=== PATIENT | male | born 1985 | race African-American/Black ===

== ENCOUNTER 2022-05-03 09:44 | Inpatient (IN) | payer SELFPAY ==
[~2022-05-03] VITALS: Ht 170.2 cm; Wt 78.9 kg
[2022-05-03 13:22] LABS: CLARITY URINE CLEAR (CLEAR); COLOR URINE DARK YELLOW (YELLOW); KETONES URINE TRACE (NEGATIVE); LEUKOCYTE ESTERASE URINE TRACE (NEGATIVE); NITRITE URINE NEGATIVE (NEGATIVE); OCCULT BLOOD URINE NEGATIVE (NEGATIVE); PROTEIN URINE 1+ (NEGATIVE); SPECIFIC GRAVITY URINE 1.028 (1.005-1.030)
[2022-05-03 13:29] LABS: CHLORIDE 105 mEq/L (98-107)
[2022-05-03] MEDS ORDERED: KETOROLAC 15MG/ML VIAL IV NR (13:30)
[2022-05-03] MEDS ORDERED: SODIUM CHLORIDE 0.9% 1,000 ML IV ONE (13:30)
[2022-05-03 13:34] LABS: HEMATOCRIT 29.7 % (42.0-52.0); MEAN CORPUSCULAR HEMOGLOBIN 32.5 pg (28.0-32.0); MEAN CORPUSCULAR VOLUME 96.4 fL (80.0-94.0); PLATELET 341 x1000/uL (130-400); RED BLOOD CELL COUNT 3.08 mill/uL (4.7-6.1); RED CELL DISTRIBUTION WIDTH 14.3 % (11.6-14.6)
[2022-05-03 13:39] LABS: PROTHROMBIN TIME 11.1 sec (9.6-11.0)
[2022-05-03] MEDS ORDERED: CEFTRIAXONE SODIUM 500 MG/VIAL IM NR (16:45)
[2022-05-03] MEDS ORDERED: DOXYCYCLINE HYCLATE 100MG CAPSULE PO ONE (16:45)
[2022-05-03] MEDS ORDERED: AZITHROMYCIN 500 MG TABLET PO NR (16:45)
[2022-05-03] MEDS ORDERED: CEFTRIAXONE 2 G PREMIX 50 ML IV ONE (17:00)
[2022-05-03] MEDS ORDERED: CEFTRIAXONE 2 G in DEXTROSE 5% WATER 50 ML IV NR (17:00)
[2022-05-03 20:00] VITALS: BP 126/78
[2022-05-03] MEDS ORDERED: MAGNESIUM/ALUMINUM HYDROXIDE/SIMETHICONE 30ML UDC PO PRN (20:30)
[2022-05-03] MEDS ORDERED: CLONIDINE 0.1MG TABLET PO PRN (20:30)
[2022-05-03] MEDS ORDERED: IPRATROPIUM/ALBUTEROL 0.5-3(2.5)MG/3ML NEB NEB PRN (20:30)
[2022-05-03] MEDS ORDERED: DOCUSATE SODIUM 100MG CAPSULE PO PRN (20:30)
[2022-05-03] MEDS ORDERED: GUAIFENESIN 200MG/10ML SUGAR FREE UDC PO PRN (20:30)
[2022-05-03] MEDS ORDERED: NITROGLYCERIN 0.4MG TABLET SL SL PRN (20:30)
[2022-05-03] MEDS ORDERED: ACETAMINOPHEN 325MG TABLET PO PRN ×2 (20:30)
[2022-05-03] MEDS ORDERED: IOHEXOL-300 100 ML BOTTLE ONE (21:07)
[2022-05-03] MEDS: ONDANSETRON HCL 4MG/2ML INJ IV PRN (21:28)
[2022-05-03] MEDS: KETOROLAC 15MG/ML VIAL IV PRN (21:29)
[2022-05-03 21:31] LABS: T4 FREE 0.84 ng/dL (0.76-1.46)
[2022-05-03] MEDS: ZOLPIDEM TARTRATE 5MG TABLET PO PRN (21:39)
[2022-05-03 21:50] LABS: VITAMIN B12 SERUM 541 pg/mL (211-911)
[2022-05-03] MEDS: PIPERACILLIN/TAZ 3.375G PREMIX 50 ML IV SCH (22:32)
[2022-05-03 23:21] VITALS: BP 126/78
[2022-05-04] VITALS (7 sets, daily range): BP systolic 98–134; BP diastolic 54–87
[2022-05-04] MEDS: PIPERACILLIN/TAZ 3.375G PREMIX 50 ML IV SCH (05:39)
[2022-05-04 08:18] LABS: BASOPHILS % 0.5 % (0.0-2.0); EOSINOPHILS % 5.4 % (0.0-5.0); HEMATOCRIT. 26.5 % (42.0-52.0); HEMOGLOBIN. 8.6 g/dL (14.0-18.0); LYMPHOCYTES % 36.9 % (20.0-50.0); MEAN CORPUSCULAR HEMOGLOBIN 31.4 pg (28.0-32.0); MEAN CORPUSCULAR VOLUME 97.2 fL (80.0-94.0); MEAN PLATELET VOLUME 7.7 fl (7.4-10.4); MONOCYTES % 10.3 % (2.0-8.0); NEUTROPHILS % 46.9 % (40.0-76.0); PLATELET 289 x1000/uL (130-400); RED BLOOD CELL COUNT 2.72 mill/uL (4.7-6.1); RED CELL DISTRIBUTION WIDTH 14.4 % (11.6-14.6)
[2022-05-04] MEDS: KETOROLAC 15MG/ML VIAL IV PRN ×2 (09:14→22:27)
[2022-05-04] MEDS: PANTOPRAZOLE SODIUM 40 MG/VIAL IV SCH (09:14)
[2022-05-04 10:26] LABS: CHLORIDE 104 mEq/L (98-107)
[2022-05-04] MEDS ORDERED: LIDOCAINE HCL 2% JELLY 5ML TOP NR (14:00)
[2022-05-04] MEDS: PIPERACILLIN/TAZOBACTAM 3.375G in DEXT 5% WATER 50ML IV SCH ×2 (15:44→21:23)
[2022-05-04] MEDS: DOCUSATE SODIUM 100MG CAPSULE PO SCH (16:03)
[2022-05-04] MEDS: ONDANSETRON HCL 4MG/2ML INJ IV PRN (22:27)
[2022-05-04] MEDS: ZOLPIDEM TARTRATE 5MG TABLET PO PRN (22:27)
[2022-05-05 04:00] VITALS: BP 120/70
[2022-05-05] MEDS: PIPERACILLIN/TAZOBACTAM 3.375G in DEXT 5% WATER 50ML IV SCH ×2 (05:11→14:06)
[2022-05-05 06:35] LABS: HEMATOCRIT 29.2 % (42.0-52.0); HEMOGLOBIN 9.6 g/dL (14.0-18.0); MEAN CORPUSCULAR HEMOGLOBIN 31.5 pg (28.0-32.0); MEAN CORPUSCULAR VOLUME 96.3 fL (80.0-94.0); PLATELET 308 x1000/uL (130-400); RED BLOOD CELL COUNT 3.03 mill/uL (4.7-6.1)
[2022-05-05 07:08] LABS: CHLORIDE 103 mEq/L (98-107)
[2022-05-05 07:18] LABS: PHOSPHORUS 3.9 mg/dL (2.5-4.9)
[2022-05-05 08:00] VITALS: BP 124/76
[2022-05-05] MEDS: DOCUSATE SODIUM 100MG CAPSULE PO SCH (08:56)
[2022-05-05] MEDS: PANTOPRAZOLE SODIUM 40 MG/VIAL IV SCH (08:56)
[2022-05-05 09:11] LABS: ABSOLUTE EOSINOPHILS 0.3 x10E3/uL (0.0-0.4); ABSOLUTE LYMPHOCYTES 2.3 x10E3/uL (0.7-3.1); ABSOLUTE MONOCYTES 0.5 x10E3/uL (0.1-0.9); ABSOLUTE NEUTROPHILS 2.2 x10E3/uL (1.4-7.0); BASOPHILS 1 % (Not Estab.); HEMATOCRIT 26.7 % (37.5-51.0); HEMOGLOBIN 8.3 g/dL (13.0-17.7); IMMATURE GRANULOCYTES 0 % (Not Estab.); LYMPHOCYTES 43 % (Not Estab.); MEAN CORPUSCULAR HEMOGLOBIN 30.3 pg (26.6-33.0); MEAN CORPUSCULAR HGB CONC. 31.1 g/dL (31.5-35.7); MEAN CORPUSCULAR VOLUME 97 fL (79-97); MONOCYTES 8 % (Not Estab.); NEUTROPHILS 42 % (Not Estab.); PLATELETS 303 x10E3/uL (150-450); RBC 2.74 x10E6/uL (4.14-5.80); RED CELL DISTRIBUTION WIDTH 11.6 % (11.6-15.4); WBC 5.3 x10E3/uL (3.4-10.8)
[2022-05-05] MEDS ORDERED: DOCUSATE SODIUM 100MG CAPSULE PO PRN (09:45)
[2022-05-05 10:06] LABS: % CD 3 POS. LYMPHOCYTES 87.9 % (57.5-86.2); % CD 8 POS. LYMPH 44.6 % (12.0-35.5); ABSOLUTE CD 3 2022 /uL (622-2402); ABSOLUTE CD 4 HELPER 989 /uL (359-1519); ABSOLUTE CD 8 SUPPRESSOR 1026 /uL (109-897); CD4/CD8 RATIO 0.96 (0.92-3.72)
[2022-05-05 12:00] VITALS: BP 116/80
[2022-05-05 16:00] VITALS: BP 124/77
== END 2022-05-05 17:35 | disposition left against medical advice (07) | DRG 253 ==
LOC: ER 09:44 → 6EST 18:06 → EDBEDREQTM 18:08 → EDBEDREQ 18:08
PROVIDERS: ADMIT Internal Medicine; ATTEND Internal Medicine
DX: K92.2 Gastrointestinal hemorrhage, unspecified (principal); E46 Unspecified protein-calorie malnutrition; D64.9 Anemia, unspecified; K52.9 Noninfective gastroenteritis and colitis, unspecified; D49.0 Neoplasm of unspecified behavior of digestive system; K59.00 Constipation, unspecified; N20.0 Calculus of kidney; Z68.27 Body mass index [BMI] 27.0-27.9, adult
CPT/HCPCS: 36415; 74177; 80048; 80053; 80320; 81003; 82270; 82607; 82705; 82746; 83036; 83540; 83550; 83735; 84100; 84439; 84443; 85025; 85027; 86359; 86360; 87015; 87045; 87427; 87449; 87493; 87591; 89055; 93970; 99285; C9113; J0696; J1885; J2405; J2543; J7030; J7060; Q9967; G0480